=== PATIENT | male | born 1950 | race Asian ===

== ENCOUNTER 2017-11-09 10:55 | Day surgery (SDC) | payer MEDICARE, OTHER ==
[2017-11-09] MEDS ORDERED: LACTATED RINGERS 1,000 ML IV ONE (11:27)
[2017-11-09] MEDS ORDERED: fentaNYL 100 MCG/2 ML VIAL IVP ONE (12:32)
[2017-11-09] MEDS ORDERED: MIDAZOLAM 2 MG/2 ML VIAL IVP ONE (12:32)
[2017-11-09 13:38] VITALS: BP 124/79
== END 2017-11-09 10:56 | disposition home or self-care (01) ==
LOC: SDS 10:55
PROVIDERS: ATTEND Surgery
PROC: 0DBP8ZX Excision of Rectum, Via Natural or Artificial Opening Endoscopic, Diagnostic (ICD-10-PCS; principal; 2017-11-09 12:00)
DX: Z12.11 Encounter for screening for malignant neoplasm of colon (principal); D12.8 Benign neoplasm of rectum; K64.8 Other hemorrhoids; I10 Essential (primary) hypertension; Z87.891 Personal history of nicotine dependence
CPT/HCPCS: 45380; J7120

== ENCOUNTER 2020-11-05 16:55 | Outpatient (CLI) | payer MEDICARE, OTHER | END 2020-11-05 16:56 | disposition home or self-care (01) | LOC: COV 16:55 | PROVIDERS: ATTEND Ophthalmology | DX: Z01.812 Encounter for preprocedural laboratory examination (principal); H25.812 Combined forms of age-related cataract, left eye; Z20.822 Contact with and (suspected) exposure to COVID-19 ==

== ENCOUNTER 2020-11-08 06:19 | Day surgery (SDC) | payer MEDICARE, OTHER ==
[2020-11-08] MEDS ORDERED: PROPARACAINE 0.5% OPHTH DROPS 15 ML ONE (06:27)
[2020-11-08] MEDS ORDERED: PHENYLEPHRINE 2.5% OPHTH 2 ML DROPS ONE (06:27)
[2020-11-08] MEDS ORDERED: KETOROLAC 0.45% OPHTH DROPS ONE (06:27)
[2020-11-08] MEDS ORDERED: LACTATED RINGERS 500 ML IV ONE ×2 (07:03→08:14)
[2020-11-08] MEDS ORDERED: TRIAMCIN/MOXIFLOX OPHTHALMIC 0.6 ML VIAL IO ONE ×2 (07:30→07:58)
[2020-11-08] MEDS ORDERED: VANCOMYCIN OPHTHALMI 8MG/0.8ML 8 MG/0.8 ML SYRINGE IO ONE ×2 (07:31→07:58)
[2020-11-08] MEDS ORDERED: TIMOLOL 0.5% OPHTH DROPS ONE (07:31)
[2020-11-08] MEDS ORDERED: EPINEPHrine 1 MG/ML AMP ONE (07:31)
[2020-11-08] MEDS ORDERED: BRIMONIDINE 0.2% OPHTH DROPS 5 ML ONE (07:31)
[2020-11-08] MEDS ORDERED: BSS/LIDOCAINE/EPINEPHRINE 1 ML SYRINGE ONE (07:31)
[2020-11-08] MEDS ORDERED: METOCLOPRAMIDE 10 MG/2 ML VIAL IVP PRN (07:38)
[2020-11-08] MEDS ORDERED: ATROPINE ABBOJECT 1 MG/10 ML SYRINGE IVP PRN (07:38)
[2020-11-08] MEDS ORDERED: NALOXONE 0.4 MG/ML VIAL IVP PRN (07:38)
[2020-11-08] MEDS ORDERED: fentaNYL 100 MCG/2 ML VIAL IVP PRN (07:38)
[2020-11-08] MEDS ORDERED: ePHEDrine 50 MG/ML VIAL IVP PRN (07:38)
[2020-11-08] MEDS ORDERED: MORPHINE 2 MG/ML CARPUJECT IVP PRN (07:38)
[2020-11-08] MEDS ORDERED: HYDROmorphone 0.5 MG/0.5 ML SYRINGE IVP PRN (07:38)
[2020-11-08] MEDS ORDERED: ONDANSETRON 4 MG/2 ML VIAL IVP PRN (07:38)
--- NOTE | 2020-11-08 07:38 | ANESTHESIA ---
Pre-Anesthesia VS, & Labs - Diagnosis left senile combined cataract - Procedure left CATIOL Vital Signs: Temp Pulse Resp BP Pulse Ox 36.6 C 74 16 160/79 H 98 11/08/20 06:30 11/08/20 06:30 11/08/20 06:30 11/08/20 06:30 11/08/20 06:30 Height: 5 ft 2 in Weight (kg): 77.2 kg Body Mass Index: 31.1 BMI Classification: Obese - NPO >8 hours - Lab Results Lab results reviewed: Yes Home Medications and Allergies Home Medications: Ambulatory Orders Atorvastatin [Lipitor] 20 mg ORAL DAILY 11/08/20 Atorvastatin [Lipitor] 20 mg ORAL DAILY 11/08/20 Allergies/Adverse Reactions: Allergies Allergy/AdvReac Type Severity Reaction Status Date / Time No Known Drug Allergies Allergy Verified 11/09/17 10:17 Anes History & Medical History - Anesthetic History Anesthesia Complications: reports: No previous complications Family history of Anesthesia Complications: Denies Family history of Malignant Hyperthermia: Denies - Medical History Cardiovascular: reports: Hypertension Pulmonary: reports: None Gastrointestinal: reports: GERD, Colon polyps Urinary: reports: None Musculoskeletal: reports: None Endocrine/Autoimmune: reports: None Skin: reports: None - Surgical History General: reports: Cholecystectomy, Colonoscopy Exam General: Alert, Oriented x3, Cooperative, No acute distress Dental: WNL Mouth Openin Fingerbreadth Neck Mobility: Normal Mallampati classification: II Respiratory: Lungs clear, Normal breath sounds, No respiratory distress, No accessory muscle use Cardiovascular: Regular rate, Normal S1, Normal S2, No murmurs Plan Anesthesia Type: MAC Consent for Procedure(s) Verified and Reviewed: Yes Code Status: Attempt Resuscitation ASA classification: 2-Mild systemic disease Is this case an emergency?: No
[2020-11-08] MEDS ORDERED: MIDAZOLAM 2 MG/2 ML VIAL ONE (07:56)
[2020-11-08] MEDS ORDERED: TIMOLOL 0.5% OPHTH DROPS OPTH ONE (07:57)
[2020-11-08] MEDS ORDERED: EPINEPHrine 1 MG/ML AMP IR ONE (07:57)
[2020-11-08] MEDS ORDERED: BRIMONIDINE 0.2% OPHTH DROPS 5 ML OPTH ONE (07:57)
[2020-11-08] MEDS ORDERED: CHONDR SULF/HYALURONATE SYRINGE IO ONE (07:57)
[2020-11-08] MEDS ORDERED: PROPARACAINE 0.5% OPHTH DROPS 15 ML EACHEYE ONE (07:58)
[2020-11-08] MEDS ORDERED: BSS/LIDOCAINE/EPINEPHRINE 1 ML SYRINGE IO ONE (07:58)
[2020-11-08] MEDS ORDERED: LACTATED RINGERS 1,000 ML IV SCH (08:00)
[2020-11-08 08:23] VITALS: BP 133/97
--- NOTE | 2020-11-08 09:06 | PROCEDURE REPORT ---
DATE OF SERVICE: 11/08/2020 Physician: Cali Hernandez MD PREOPERATIVE DIAGNOSIS: Visually significant cataract, left eye. This was his first cataract surger y. POSTOPERATIVE DIAGNOSIS: Visually significant cataract, left eye. This was his first cataract surge ry. PROCEDURE: Phacoemulsification with posterior chamber intraocular lens implant, left eye. SURGEON: Cali Hernandez MD ANESTHESIA: Monitored anesthesia care. COMPLICATIONS: None. OPERATIVE INDICATIONS: This is a 70-year-old man with progressive vision loss in the left eye due to 2+ nuclear sclerotic and 3+ cortical cataract. Best corrected visual acuity was 20/30, with glare t o 20/800 in the left eye. Indications for surgery are overall decrease in vision, difficulty seeing words on a computer screen, difficulty reading, difficulty seeing words, closed caption or game score s on TV, difficulty seeing street signs, difficulty driving in low light or at night, difficulty driv ing at night because of headlights from other vehicles, and difficulty with glare or bright lights in any situation. He was consented at length concerning risks and benefits of cataract surgery, after which he expressed a desire to proceed with surgery. OPERATIVE PROCEDURE: The patient was taken to OR #3 and placed under monitored anesthesia care. A s urgical timeout was conducted, confirming correct patient, correct procedure, and correct surgical si te. He was given topical anesthesia, and prepped and draped in the usual sterile fashion. The eye was entered at the 6 and 3 o'clock positions. Intracameral Shugarcaine was injected into the anterior chamber, followed by Viscoat. A continuous-tear curvilinear capsulorrhexis was performed. The nucleus was hydrodissected and phacoemulsified. The cortex was evacuated using automated infusi on and aspiration. Provisc was injected in the capsular bag, and a 20.5 diopter intraocular lens ins erted in the bag. Infusion and aspiration were used to evacuate the viscoelastic materials. The eye was inflated to physiologic pressure using balanced salt solution and found to be watertight. Appro ximately 0.25 mL of a mixture of triamcinolone and moxifloxacin was injected transsclerally into the vitreous in inferotemporal quadrant. An additional 0.55 mL mixture of triamcinolone, moxifloxacin, a nd vancomycin was injected subconjunctivally in the superior quadrant for infection and inflammation prophylaxis. Wound integrity was checked with Weck-Chacha sponges. The patient was taken from the operating room in good condition and given postoperative instructions. TD: 11/08/2020 08:23
--- NOTE | 2020-11-08 10:05 | ANESTHESIA POST OP EVALUATION ---
Anesthesia Post Eval - Post Anesthesia Eval Vitals: Last Vital Signs Temp 36.6 C 11/08/20 08:12 Pulse 72 11/08/20 08:12 Resp 12 11/08/20 08:12 BP 133/97 H 11/08/20 08:12 Pulse Ox 97 11/08/20 08:12 CV Function Including HR & BP: positive: Stable Pain Control: positive: Satisfactory Nausea & Vomiting: positive: Negative Mental Status: positive: Baseline Respiratory Status: Airway Patent Hydration Status: Satisfactory Anesthesia Complications: positive: None
== END 2020-11-08 06:20 | disposition home or self-care (01) ==
LOC: SDS 06:19
PROVIDERS: ATTEND Ophthalmology
DX: H25.812 Combined forms of age-related cataract, left eye (principal); E66.9 Obesity, unspecified; Z68.31 Body mass index [BMI] 31.0-31.9, adult; I10 Essential (primary) hypertension; K21.9 Gastro-esophageal reflux disease without esophagitis; Z87.891 Personal history of nicotine dependence
CPT/HCPCS: 66984; A9270; J3490; J7120; V2632

== ENCOUNTER 2022-02-12 18:38 | Outpatient (CLI) | payer OTHER ==
--- NOTE | 2022-02-13 15:38 | Ultrasound Report ---
PROCEDURE: Retroperitoneal Limited INDICATIONS: AAA TECHNIQUE: Real time scanning was performed of the aorta and iliac arteries, with image documentatio n. COMPARISON: None FINDINGS: Aorta: Proximal aortic diameter measures 2.9 x 2 point cm. Mid-aorta measures 2.0 x 2.1 cm. Distal aortic diameter is 2.9 x 2.5 cm. Iliac arteries: Right common iliac artery measures 1.3 x 1.3 cm. Left common iliac artery measures 1.4 x 1.3 cm. 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 Reviewed by: Alexandrea Chris MD on 02/13/2022 3:37 PM PDT Approved by: Alexandrea Chris MD on 02/13/2022 3:37 PM PDT Station ID: [id number]
== END 2022-02-12 18:39 | disposition home or self-care (01) ==
LOC: DI 18:38
PROVIDERS: ATTEND Nurse Practitioner Family
DX: I77.819 Aortic ectasia, unspecified site (principal)